=== PATIENT | male | born 1960 | race Caucasian/White ===

== ENCOUNTER 2022-10-06 09:15 | Outpatient (RCR) | payer MEDICAID, SELFPAY | END 2023-01-04 16:41 | disposition home or self-care (01) | PROVIDERS: PCP Family Medicine; Visit Provider Family Medicine | DX: M54.9 Dorsalgia, unspecified (principal); Z51.89 Encounter for other specified aftercare | CPT/HCPCS: 97110; 97140; 97162 ==

== ENCOUNTER 2022-12-21 08:58 | Day surgery (SDC) | payer MEDICAID, SELFPAY ==
[2022-12-21] VITALS (22 sets, daily range): BP systolic 102–147; BP diastolic 56–86; PULSE 62–87; RESP 16–20; TEMP 35.9–37.2; O2SAT 90–99; BMI 43.8
[2022-12-21] MEDS: CELECOXIB 200 MG CAPSULE PO (09:49)
[2022-12-21] MEDS: OXYCODONE (CR) 10 MG TAB.ER.12H PO (09:49)
[2022-12-21] MEDS: ACETAMINOPHEN 500 MG TABLET 1000 MG PO ×3 (09:49→21:38)
[2022-12-21] MEDS: SODIUM CHLORIDE 0.9 % (FLUSH) 10 ML SYRINGE IVF (10:00)
[2022-12-21] MEDS: LACTATED RINGERS 1000 ML 1,000 ML 100 ML IV ×2 (10:00→11:54)
[2022-12-21] MEDS: fentaNYL 100 MCG/2 ML inj IVP (10:15)
[2022-12-21] MEDS: MIDAZOLAM HCL 1 MG/ML inj IVP (10:15)
--- NOTE | 2022-12-21 10:15 | SUR.PREOP ---
TIME?OUT:?1015 PT/RN/MDA?VERIFICATION?OF?SURGICAL?SITE,?PROCEDURE,?AND?CONSENT OBTAINED?PRIOR?TO?INVASIVE?PROCEDURE.
[2022-12-21] MEDS: CEFAZOLIN 2 GM INJ IVP (10:30)
[2022-12-21] MEDS: TRANEXAMIC ACID 100 MG/ML INJ 1000 MG IV (10:50)
--- NOTE | 2022-12-21 11:12 | W.ANESCHARGE ---
Anesthesia Charges Start Date/Time Anesthesia Start Date: 12/21/22 Anesthesia Start Time: 10:24 Stop Date/Time Anesthesia Stop Date: 12/21/22 Anesthesia Stop Time: 13:17
--- NOTE | 2022-12-21 11:13 | W.PM.NB ---
Nerve Block Nerve Block Time Seen by Provider: 10:15 Date Seen: 12/21/22 Type of block requested by surgeon for post-operative analgesia: supraclavicular Side: right Time out performed: Yes Verification of patient name: Yes Verification of date of : Yes Site marking: site marked Name of person performing procedure: Low Continuous monitoring Was continuous monitoring of O2 sat, B/P, monitoring and evaluation advisor, recorded every 15 minutes?: Yes Procedure Checklist: sterile prep, needles and gloves Ultrasound guided. Images saved: Yes Medications given in 5ml increments after negative aspiration: Ropivicaine %: 0.5 mL: 20 Needle gauge: 22 Decadron (mg): 10 Precedex (mcg): 25 Patient tolerated procedure well: Yes Block Charges Block Charge (with Pro Fee): Brachial Plexus Use of Ultrasound Machine for Block: Yes- US Guidance/pain block
--- NOTE | 2022-12-21 12:41 | CRLHL7_ITS ---
For Patients: As a result of the Cures Act, medical imaging exams and procedure reports are released immediately into your electronic medical record. You may view this report before your referring provider. If you have questions, please contact your health care provider. Indication: Postop Technique: Two views right shoulder Findings/Impression: Hardware from a reverse total shoulder arthroplasty is in satisfactory position. Bone alignment is normal. No sign of acute fracture. Postop changes are within normal limits. Dictated by Jai Manning MD @ 12/21/2022 3:06:08 PM (Electronically Signed)
--- NOTE | 2022-12-21 12:43 | PM.ORPRC ---
Procedure Note Date of procedure: 12/21/22 Procedure: PREOPERATIVE DIAGNOSIS: Right shoulder rotator cuff tear arthropathy, humeral head retained hardware POSTOPERATIVE DIAGNOSIS: Right shoulder rotator cuff tear arthropathy, humeral head retained hardware NAME OF OPERATION: Right upper extremity reverse shoulder arthroplasty, hardware removal deep SURGEON: Jed Kennedy MD OLIVE GRADER: Mirtha Hearn PA-C, LEAH Alvarez ANESTHESIA: General endotracheal ESTIMATED BLOOD LOSS: 500 mL COMPLICATIONS: None SPECIMENS: None DRAINS: None PREOPERATIVE ANTIBIOTICS: Ancef 3 grams IMPLANTS: 1. Tornier 29 mm x 35 mm baseplate 2. 36mm standard glenosphere 3. 4B humeral stem 4. Low eccentric +0 humeral tray 5. 36mm +6 polyethylene INDICATIONS: The patient is a 62-year-old with a longstanding history of severe, unrelenting right shoulder pain secondary to rotator cuff tear arthropathy. Despite appropriate nonoperative management, including activity modification, anti-inflammatories, [id number]-[id number] pain medication, physical therapy, and injections they continue to have pain and disability. Operative intervention was offered. The risks, benefits and expected outcomes were discussed in detail. These included but were not limited to: Infection, bleeding, injury to blood vessel or nerve, venous thromboembolism. All questions were answered to their satisfaction. Use of an glass ribbon machine operator assistant was necessary throughout the case for patient positioning and safety, soft tissue retraction, and closure. A modifier 22 should be added to this case. The patient's weight of 135 kg with a BMI of 44 kg/meter squared plus a history of previous open rotator cuff repair made the exposure quite difficult. This doubled the time typically required to complete case. PROCEDURE: General anesthesia was administered. The patient was placed in the lazy beach chair position on the operating room table. The right upper extremity was prepped and draped in the usual sterile fashion. A standard deltopectoral incision was made. Subcutaneous dissection was taken with electrocautery to the deltopectoral interval. The cephalic vein was mobilized, lateral branches were cauterized. The vein was ligated and divided. We bluntly entered the deltopectoral interval. We freed up the deltoid. The upper 1/3 of the insertion of the pectoralis was divided with cautery. The static retractor was placed. There was a marked amount of scar from the previous rotator cuff repair. Therefore, a significant amount of time was taken to mobilize the deltoid off of the rotator cuff. The entirety of the supraspinatus, infraspinatus and teres minor are torn and retracted. The biceps was torn and retracted. A fiberWire suture was placed in the subscapularis. The subscap was subperiosteally elevated off of the lesser tuberosity. The humeral head was delivered into the wound. The intramedullary humeral cutting guide was placed. We made the cut at the anatomic neck, in 30? of retroversion. We encountered the 3 metallic anchors. The anterior one was removed intact. The 2 posterior anchors were left in place as it was felt that removal would result in unnecessary bone loss. Humeral sounds were used to assess the diameter of the canal. The broach was placed and had good rotational stability. The calcar reamer was used and the protective base plate cover was placed. Attention was then turned to the glenoid. Hohmann retractors were placed posteriorly. The labrum and biceps stump were sharply debrided. The origin of the inferior glenohumeral ligaments were subperiosteally released off of the glenoid. The drill guide was placed. The guide pin was placed in 0? of cephalic tilt. The reamer was used to bleeding bone. The central drill was used x2. The tap was used. The standard base plate was placed. This had excellent purchase. Locking screws were placed. The glenosphere was placed, the set screw was tightened. Attention then returned to the humerus. We placed a low eccentric standard base plate and standard poly. We reduced the shoulder and took it through a range of motion. It was found to be stable with appropriate soft tissue tension. Trial humeral components were removed. We placed #2 FiberWire sutures in the lesser tuberosity for subsequent subscap repair. We assembled the humeral component on the back table. We placed it in the center of our subscapularis repair sutures and tapped it down to our humeral cut. This had excellent purchase. The shoulder was reduced and again was found to be stable with appropriate soft tissue tension. We did a 3 min dilute Betadine solution soak. We irrigated the wound with 3 L of normal saline via pulse lavage. We repaired the subscapularis to the lesser tuberosity with our previously placed FiberWire sutures. The deltopectoral interval was loosely reapproximated with an 0 Vicryl in an interrupted [id number] fashion. Subcutaneous tissues were closed with the 2-0 Vicryl and a running 3-0 Monocryl suture. The skin was sealed with glue. A dry dressing and sling were applied. Sponge and needle counts were correct x2. The patient tolerated the procedure well, there were no apparent complications. They were awakened and extubated in the operating room, taken to the postanesthesia care unit in satisfactory condition. PLAN: The patient will be mobilized with physical therapy. The sling will be used for 6 weeks postoperatively. Active range of motion in forward flexion and abduction as tolerates. No external rotation greater than 0? for 6 weeks postoperatively. They will be discharged to home once medically appropriate.
--- NOTE | 2022-12-21 13:18 | W.ANESCHARGE ---
Anesthesia Charges Start Date/Time Anesthesia Start Date: 12/21/22 Anesthesia Start Time: 10:24 Stop Date/Time Anesthesia Stop Date: 12/21/22 Anesthesia Stop Time: 13:17
--- NOTE | 2022-12-21 14:41 | P.IMCN_ITS ---
Date of Consult Patient: Sariah Patient Consult date: 12/21/22 Requesting Physician: Orthopedics Primary Care Provider: Derrell Prieto MD Consult Narrative Reason for consult: Postoperative medical management Narrative: John Alexander is a 62 year old male seen for management of medical problems following right shoulder arthroplasty. Procedure was performed by Dr. Kennedy today. There were no operative complications. Estimated blood loss of 500 mL. Postoperatively patient reports he is doing well. He has an affective block in his shoulder which is effectively controlling his pain. He has minimal sensation and motion in his distal right upper extremity. He has no shortness of breath. He has been mildly hypoxic postoperatively and is on nasal cannula oxygen currently. He has not had any recent shortness of breath or respiratory illness. He is a smoker. Preop evaluation showed no significant are concerns. Review of Systems Narrative: Patient reports no concerns regarding his health at this time. His requesting a nicotine patch. He is confident in his ability to manage after surgery since he has had previous bilateral rotator cuff repairs. He gets up once at night to void [facility] Medical History (Updated 12/21/22 @ 14:53 by Tevin Cintron MD) Osteoarthritis of left shoulder ?M19.012 - Primary osteoarthritis, left shoulder (ICD-10) Unspecified sleep apnea ?G47.30 - Sleep apnea, unspecified (ICD-10) Atopic dermatitis ?L20.9 - Atopic dermatitis, unspecified (ICD-10) Surgical History (Updated 12/21/22 @ 14:52 by Tevin Cintron MD) Status post reverse arthroplasty of right shoulder ?Z96.611 - Presence of right artificial shoulder joint (ICD-10) S/P UPPP (uvulopalatopharyngoplasty) ?Z98.890 - Other specified postprocedural states (ICD-10) Hx of hernia repair ?Z98.890 - Other specified postprocedural states (ICD-10) ?Z87.19 - Personal history of other diseases of the digestive system (ICD-10) Hx of appendectomy ?Z90.49 - Acquired absence of other specified parts of digestive tract (ICD- 10) History of arthroscopy of right shoulder (02/23/00) ?Z98.890 - Other specified postprocedural states (ICD-10) S/P left knee arthroscopy (08/15/07) ?Z98.890 - Other specified postprocedural states (ICD-10) S/P right knee arthroscopy (08/15/07) ?Z98.890 - Other specified postprocedural states (ICD-10) S/P arthroscopy of left shoulder (01/29/08) ?Z98.890 - Other specified postprocedural states (ICD-10) Status post total right knee replacement (01/13/09) ?Z96.651 - Presence of right artificial knee joint (ICD-10) S/P right rotator cuff repair (11/30/10) ?Z98.890 - Other specified postprocedural states (ICD-10) Status post total left knee replacement (06/07/11) ?Z96.652 - Presence of left artificial knee joint (ICD-10) History of carpal tunnel surgery of right wrist (02/21/12) ?Z98.890 - Other specified postprocedural states (ICD-10) Family History (Updated 12/21/22 @ 14:47 by Tevin Cintron MD) Brother Diabetes Father Diabetes Prostate cancer Sister Diabetes Mother Lymphoma Social History (Updated 12/21/22 @ 14:48 by Tevin Cintron MD) Narrative: He lives with his significant other in [place]. He smokes 1 pack of cigarettes per day. He drinks 2 alcoholic beverages per week What is your current living situation?: I presently have a place to live Problems where you live: no known problems In the past 12 months, utilities in danger of being shut off: no In past 12 months, lack of transportation kept you from medical appts, meetings, work, or getting things needed for daily living: no In the past 12 mos, have been you worried that your food would run out before you had money to buy more?: never true In the past 12 mos, the food you bought just didn't last and you didn't have money to buy more?: never true Smoking Status: Current every day smoker What tobacco products do you use: cigarettes Do you use any of these nicotine containing products: Smokeless Tobacco Nicotine containing products detail: nicotine pouch Second hand tobacco smoke exposure: No How often do you have a drink containing alcohol: 2-4 times a month AUDIT-C Alcohol total score: 2 Non-prescribed substance use: denies use Caffeine: Yes How often does anyone, including family, friends and others, physically hurt you : never How often does anyone, including family, friends and others, insult or talk down to you: never How often does anyone, including family, friends and others, threaten you with harm: never Meds Home Medications and Allergies Home Medications Medication Instructions Recorded Confirmed Type psyllium husk 3.4 gram/5.4 gram 1 tbsp PO BID 12/20/22 12/21/22 History oral powder (Metamucil) trazodone 50 mg tablet 200 mg PO QHS PRN 12/20/22 12/21/22 History Allergies Allergy/AdvReac Type Severity Reaction Status Date / Time No Known Drug Allergies Allergy Unverified 10/09/22 14:53 Exam Narrative: Exam Narrative: He is alert and in no distress. Oropharynx with small airway. Neck is supple without mass or adenopathy. Respirations are clear to auscultation. Symmetric breath sounds comparing left to right. He has diminished breath sounds in all lung hoffmann however. No wheezing rales or rhonchi. Cardiovascular: Distant S1, S2, regular rate and rhythm. Abdomen is soft without tenderness or mass. Right upper extremity is in a sling. He has diminished sensation and diminished movement in his fingers. Good capillary refill. Fingers are warm to touch and good radial pulse. Left upper extremities normal. Lower extremities without edema. Intact peripheral pulses. Const: Vital Signs, click to edit/add: Vital Signs - 24 hr 12/21/22 09:45 12/21/22 10:13 12/21/22 10:15 Temperature 97.9 F Pulse Rate 63 64 62 Respiratory Rate 16 16 16 Blood Pressure 133/71 137/78 140/77 H Pulse Oximetry 96 95 97 Oxygen Delivery Me thod Room Air Nasal Cannula Nasal Cannula Oxygen Flow Rate 3 3 12/21/22 13:12 12/21/22 13:15 12/21/22 13:20 Temperature 99.0 F Pulse Rate 81 77 80 Respiratory Rate 18 18 20 Blood Pressure 145/86 H 147/77 H 142/77 H Pulse Oximetry 93 90 91 Oxygen Delivery Me thod Room Air Oxygen Flow Rate 12/21/22 13:25 12/21/22 13:30 12/21/22 13:35 Temperature Pulse Rate 80 76 75 Respiratory Rate 20 18 20 Blood Pressure 142/77 H 126/70 125/67 Pulse Oximetry 92 92 92 Oxygen Delivery Me thod Oxygen Flow Rate 12/21/22 13:40 Temperature 97.9 F Pulse Rate 76 Respiratory Rate 18 Blood Pressure 120/74 Pulse Oximetry 92 Oxygen Delivery Me thod Oxygen Flow Rate Documenting provider has reviewed patient's vital signs: yes Assessment and Plan Assessment and plan (1) Osteoarthritis of left shoulder: Problem comment: End-stage left shoulder glenohumeral joint osteoarthritis Status: Acute (2) Status post reverse arthroplasty of right shoulder: Problem comment: Procedure performed 12/21/[address] Kennedy. No complications. Status: Acute (3) Postoperative hypoxia: Problem comment: Likely combination of factors including sedation and sleep apnea. Continue to monitor and evaluate if persistent Status: Acute (4) Unspecified sleep apnea: Problem comment: Home CPAP Status: Acute Plan Patient will be manage overnight for hypoxia and sleep apnea. Routine therapy and pain management. Anticipate discharge to home tomorrow. Total time spent today is 40 minutes, 25 minutes in coordination of care and discussing with patient, significant other and other staff ongoing evaluation management of hypoxia, sleep apnea, shoulder surgery
[2022-12-21] MEDS: NICOTINE 21 MG PATCH 1 PATCH TRANSDERMA (15:21)
[2022-12-21] MEDS: CEFAZOLIN 3 GM in 0.9 % SODIUM CHLORIDE Mini-bag 100 ML IVPB ×2 (17:24→23:56)
[2022-12-21] MEDS: SENNOSIDES 1 TAB TABLET 2 TAB PO (20:42)
[2022-12-21] MEDS: PSYLLIUM HUSK (WITH SUGAR) 12 GM PACKET PO (20:43)
[2022-12-21] MEDS: OXYCODONE 5 MG TABLET PO (23:51)
[2022-12-22 03:14] VITALS: BP 130/67; PULSE 71; RESP 18; TEMP 36.6; O2SAT 94
[2022-12-22] MEDS: OXYCODONE 5 MG TABLET PO ×2 (03:36→08:24)
[2022-12-22] MEDS: ACETAMINOPHEN 500 MG TABLET 1000 MG PO (03:36)
--- NOTE | 2022-12-22 05:45 | PC.NURSE ---
End of shift [id number]: A&O, pleasant and cooperative. VSS. Uses CPAP at night. Reporting 6-8/10 back pain. See eMAR for intervention. CMS intact and +radial pulse. Dressing to right shoulder c/d/i. Cryocuff to site and sling on. Nicotine patch to left outer shoulder. SBA to bathroom. Denies n/v. Tolerating regular diet. ?
[2022-12-22 06:38] LABS: Potassium* 3.9 mmol/L (3.6-5.1); Sodium* 136 mmol/L (135-149)
[2022-12-22 06:41] LABS: Blood Urea Nitrogen* 15 mg/dL (7-30); Creatinine* 0.7 mg/dL (0.5-1.5); Est. Creatinine Clearance* 75.61; Estimated Glomerular Filt Rate 104 ml/min; Hematocrit 39.9 % (37.0-53.0); Hemoglobin* 13.8 gm/dL (13.5-17.5); Mean Corpuscular HGB Conc 35 gm/dL (32-36); Mean Corpuscular Hemoglobin 31 pg (26-34); Mean Corpuscular Volume 88 fL (80-100); Platelet Count* 245 K/uL (140-440); Red Blood Count 4.52 m/uL (4.30-5.90)
[2022-12-22 06:51] LABS: Slide Review Reflex No
[2022-12-22 07:00] VITALS: BP 130/66; PULSE 82; RESP 18; TEMP 36.5; O2SAT 97
[2022-12-22] MEDS: SENNOSIDES 1 TAB TABLET 2 TAB PO (08:24)
[2022-12-22] MEDS: PSYLLIUM HUSK (WITH SUGAR) 12 GM PACKET PO (08:25)
--- NOTE | 2022-12-22 09:32 | REH.PT ---
Pt seen by PT. Pt is IND with all mobility, no AD needed. Pt re-educated on sling use and post-op precautions.
--- NOTE | 2022-12-22 10:02 | PC.SOCIAL ---
Discharge Planning: Patient will be going home today withRenata. She will be able to help care for him as he recuperates. Social work to follow up as needed.
--- NOTE | 2022-12-22 10:03 | PM.ORPN ---
Subjective Subjective Time Seen by Provider: 07:35 Date Seen: 12/22/22 Principal diagnosis: Status post right reverse total shoulder arthroplasty Interval history: Corby is comfortable this morning. He is able to move his fingers. He has no pain at the shoulder. He is discharging today to home. Ortho Exam Narrative Exam Narrative: Alert and oriented x3. Patient is in no acute distress. Converses without labored breathing. Hearing is grossly intact. Ambulates with a normal gait. Examination of the right shoulder shows the dressing is intact. Soft tissue edema is present. He is able to move his fingers. Sensation in his fingers is normal, however mild thumb numbness. Sling is applied to right upper extremity. Pulses 2+ radial and ulnar. Const Vital Signs, click to edit/add: Vital Signs - 24 hr 12/21/22 10:13 12/21/22 10:15 12/21/22 13:12 Temperature 99.0 F Pulse Rate 64 62 81 Pulse Rate [Right Pulse Oximeter] Respiratory Rate 16 16 18 Blood Pressure 137/78 140/77 H 145/86 H Blood Pressure [Left Arm] Pulse Oximetry 95 97 93 Oxygen Delivery Method Nasal Cannula Nasal Cannula Room Air Oxygen Flow Rate 3 3 12/21/22 13:15 12/21/22 13:20 12/21/22 13:25 Temperature Pulse Rate 77 80 80 Pulse Rate [Right Pulse Oximeter] Respiratory Rate 18 20 20 Blood Pressure 147/77 H 142/77 H 142/77 H Blood Pressure [Left Arm] Pulse Oximetry 90 91 92 Oxygen Delivery Method Oxygen Flow Rate 12/21/22 13:30 12/21/22 13:35 12/21/22 13:40 Temperature 97.9 F Pulse Rate 76 75 76 Pulse Rate [Right Pulse Oximeter] Respiratory Rate 18 20 18 Blood Pressure 126/70 125/67 120/74 Blood Pressure [Left Arm] Pulse Oximetry 92 92 92 Oxygen Delivery Method Oxygen Flow Rate 12/21/22 13:50 12/21/22 14:00 12/21/22 14:15 Temperature 96.6 F L 96.6 F L 96.7 F L Pulse Rate 70 Pulse Rate [Right Pulse Oximeter] 69 65 Respiratory Rate 18 18 18 Blood Pressure Blood Pressure [Left Arm] 115/65 104/79 120/61 Pulse Oximetry 92 94 Oxygen Delivery Method Room Air Room Air Room Air Oxygen Flow Rate 2 12/21/22 14:30 12/21/22 14:45 12/21/22 15:00 Temperature 96.6 F L Pulse Rate Pulse Rate [Right Pulse Oximeter] 64 64 Respiratory Rate 18 18 18 Blood Pressure Blood Pressure [Left Arm] 114/64 112/61 Pulse Oximetry 97 99 Oxygen Delivery Method Room Air Room Air Oxygen Flow Rate 2 2 12/21/22 15:15 12/21/22 15:45 12/21/22 17:00 Temperature 97 F L 97 F L 97.1 F L Pulse Rate Pulse Rate [Right Pulse Oximeter] 75 78 77 Respiratory Rate 18 18 18 Blood Pressure Blood Pressure [Left Arm] 102/60 119/61 123/73 Pulse Oximetry 92 93 95 Oxygen Delivery Method Room Air Room Air Room Air Oxygen Flow Rate 3 12/21/22 18:00 12/21/22 19:00 12/21/22 23:41 Temperature 97.6 F 98.0 F Pulse Rate Pulse Rate [Right Pulse Oximeter] 72 87 79 Respiratory Rate 18 18 18 Blood Pressure Blood Pressure [Left Arm] 124/71 134/68 127/56 L Pulse Oximetry 95 94 93 Oxygen Delivery Method Room Air Room Air Room Air Oxygen Flow Rate 12/22/22 03:14 12/22/22 07:00 12/22/22 07:00 Temperature 97.8 F 97.7 F Pulse Rate Pulse Rate [Right Pulse Oximeter] 71 82 82 Respiratory Rate 18 18 18 Blood Pressure Blood Pressure [Left Arm] 130/67 130/66 Pulse Oximetry 94 97 Oxygen Delivery Method Room Air Oxygen Flow Rate Assessment and Plan Assessment and plan (1) Status post reverse arthroplasty of right shoulder: Problem details: Procedure performed 12/21/[address] Kennedy. No complications. Status: Acute Assessment and Plan: Plan for discharge is to home when they meet discharge criteria. Patient will wear the sling for 6 weeks post surgery. They can take it off for comfort and for exercises. Activity: no external rotation of the operative shoulder past 0? x 6 weeks. Forward flexion and abduction of the shoulder is allowed as tolerated. They will work on range of motion of the elbow, wrist, fingers once the block has wore off on the operative extremity. Patient will begin physical therapy for the operative shoulder next week. For discharge, oxycodone and Tylenol for pain. Do not drive while on narcotic pain medication. Drive only when safe to do so, when they have normal use/function of the upper extremity, this will likely take 6 weeks. Patient will minimize and discontinue the narcotic as soon as possible. Remove dressing in 1 week. Dressing is waterproof. May shower. Surgical glue covers the wound. Do not scrub the wound. Expect swelling and bruising about the shoulder and upper extremity. Use of ice/active ice without restriction. Notify Orthopedics his swelling is excessive. notify Orthopedics with any questions or concerns. [phone] Return to Orthopedic clinic next week for a wound check Return to clinic in [address] Kennedy. (2) Postoperative hypoxia: Problem details: Likely combination of factors including sedation and sleep apnea. Continue to monitor and evaluate if persistent Status: Acute (3) Unspecified sleep apnea: Problem details: Home CPAP Status: Acute
--- NOTE | 2022-12-22 10:24 | PC.NURSE ---
Discharge: Patient is alert and oriented x4, denies pain in right shoulder, pre-medicated w/PRN oxy prior to therapy. denies N/V/SOB. Patient's dressing to right shoulder, C/D/I. Patient using sling, ambulating halls and to BR independently. Discharged today at 1000 accompanied by sig other. IV removed intact, discharge instructions given and signed, patient verbalized understanding of discharge instructions. Belongings list signed.
== END 2022-12-22 10:00 | disposition home or self-care (01) ==
LOC: OR 08:59 → MEDSURG 09:00
PROVIDERS: PCP Family Medicine; Visit Provider Orthopaedic Surgery
PROC: 0RRJ0JZ Replacement of Right Shoulder Joint with Synthetic Substitute, Open Approach (ICD-10-PCS; CPT 23472; principal; 2022-12-21 11:15)
DX: M75.101 Unspecified rotator cuff tear or rupture of right shoulder, not specified as traumatic (principal); M19.012 Primary osteoarthritis, left shoulder; G89.18 Other acute postprocedural pain; G47.30 Sleep apnea, unspecified; R09.02 Hypoxemia; F17.210 Nicotine dependence, cigarettes, uncomplicated
CPT/HCPCS: 23472; 01638; 36415; 64415; 73030; 76942; 82565; 84132; 84295; 84520; 85027; 97110; 97165; 97535; A9270; C1713; C1776; J0330; J0690; J1100; J2250; J2405; J2704; J2795; J3010; J3490; J7120; S4990

== ENCOUNTER 2023-02-13 10:58 | Day surgery (SDC) | payer MEDICAID, SELFPAY ==
[2023-02-13] VITALS (12 sets, daily range): BP systolic 110–140; BP diastolic 58–81; PULSE 66–711; RESP 4–22; TEMP 36.2–36.6; O2SAT 93–99; BMI 43.9
[2023-02-13] MEDS: LACTATED RINGERS 1000 ML 1,000 ML 100 ML IV (11:20)
[2023-02-13] MEDS: SODIUM CHLORIDE 0.9 % (FLUSH) 10 ML SYRINGE IVF (11:20)
--- NOTE | 2023-02-13 12:41 | CRLHL7_ITS ---
For Patients: As a result of the Cures Act, medical imaging exams and procedure reports are released immediately into your electronic medical record. You may view this report before your referring provider. If you have questions, please contact your health care provider. INDICATION: Post reduction two-views FINDINGS: Normal alignment. No acute fractures or acute osseous abnormalities. Right humeral arthroplasty appears in appropriate position. IMPRESSION: No acute fracture. Dictated by Tania Levy MD @ 02/15/2023 12:00:04 PM (Electronically Signed)
[2023-02-13] MEDS: LACTATED RINGERS 1000 ML 1,000 ML 35 ML IV (14:10)
--- NOTE | 2023-02-13 14:10 | W.ANESCHARGE ---
Anesthesia Charges Start Date/Time Anesthesia Start Date: 02/13/23 Anesthesia Start Time: 13:29 Stop Date/Time Anesthesia Stop Date: 02/13/23 Anesthesia Stop Time: 14:02
--- NOTE | 2023-02-13 14:18 | W.ANESCHARGE ---
Anesthesia Charges Start Date/Time Anesthesia Start Date: 02/13/23 Anesthesia Start Time: 13:29 Stop Date/Time Anesthesia Stop Date: 02/13/23 Anesthesia Stop Time: 14:02
--- NOTE | 2023-02-13 14:34 | PM.ORPRC ---
Procedure Note Date of procedure: 02/13/23 Procedure: PREOPERATIVE DIAGNOSIS: Dislocated right upper extremity reverse shoulder arthroplasty POSTOPERATIVE DIAGNOSIS: Dislocated right upper extremity reverse shoulder arthroplasty NAME OF OPERATION: Closed reduction under anesthesia SURGEON: Jed Kennedy MD CORRECTIONAL SUPERVISOR: LEAH Alvarez ANESTHESIA: General endotracheal ESTIMATED BLOOD LOSS: 0 mL COMPLICATIONS: None SPECIMENS: None DRAINS: None PREOPERATIVE ANTIBIOTICS: None INDICATIONS: The patient is a 63-year-old who previously underwent right upper extremity reverse shoulder arthroplasty for rotator cuff tear arthropathy. Over the weekend, he sustained an anterior dislocation. He presented to the office yesterday when we made the diagnosis. Operative intervention was recommended. The risks, benefits and expected outcomes were discussed in detail. These included but were not limited to: Infection, bleeding, injury to blood vessel or nerve, venous thromboembolism. All questions were answered to their satisfaction. Use of an surgical assistant certified was necessary throughout the case for patient positioning and safety, soft tissue retraction, and closure. PROCEDURE: The patient was left on the hospital cart. General anesthesia was administered. Gentle longitudinal traction and posterior force on the humeral component allowed it to reduce easily. I then placed arm in end range of motion in all planes in an attempt to get it to dislocate. The shoulder was stable. I was not able to get it to dislocate in any position. An intraoperative AP and axillary view of the right shoulder show a concentric reduction, without an obvious fracture. The sling was applied. Sponge and needle counts were correct x2. The patient tolerated the procedure well, there were no apparent complications. They were awakened and extubated in the operating room, taken to the postanesthesia care unit in satisfactory condition. PLAN: The patient will be discharged to home. We will have him use the sling for the next 3-4 weeks. He may use the arm for activities of daily living. However, active range of motion in forward flexion and abduction to 90? . No extreme abduction and external rotation or extension and external rotation for 3-4 weeks postoperatively. We will hold physical therapy for the next 3-4 weeks. He will follow up in 1-2 weeks.
== END 2023-02-13 15:26 | disposition home or self-care (01) ==
LOC: OR 10:59 → MEDSURG 11:02
PROVIDERS: PCP Family Medicine; Visit Provider Orthopaedic Surgery
PROC: (CPT 27570; principal; 2023-02-13 14:00)
DX: S43.084A Other dislocation of right shoulder joint, initial encounter (principal); Z96.611 Presence of right artificial shoulder joint
CPT/HCPCS: 23655; 01620; 73030; J0330; J2250; J2704; J3010; J7120

== ENCOUNTER 2023-04-12 14:30 | Outpatient (RCR) | payer MEDICAID, SELFPAY ==
--- NOTE | 2023-01-04 12:16 | PT.OPE ---
PT [facility] Eval PT [facility] Outpatient Eval Start: 01/04/23 07:53 Freq: Status: Active Protocol: Document 01/04/23 12:14 CJT (Rec: 01/04/23 12:16 CJT [id number]) E-signed By Jerome Smith PT Physical Therapy Outpatient Evaluation Insurance Information Recert Due Date 04/04/23 Insurance Name Medicaid,are Medical Diagnosis s/p Right RSA (12/21/22) Treating Diagnosis Z96.611 - R TSA Referring MD Kennedy, Jed VIRAMONTES Subjective Subjective Pt presents 2 weeks post-op R rTSA performed on 12/21/22. Pt notes his pain has been well managed with oxy and tylenol. Is eager to get back to driving and ween himself off of the oxy soon. Has primarily been taking his oxy at night to help him sleep. Pain Comments 06/05 Date of Last Physician Visit 12/27/22 Current Work Status Rn Invasive Occupation Construction Preferred Name Corby Precautions Treatment Precautions/Contraindications The sling will be used for 6 weeks postoperatively. Active range of motion in forward flexion and abduction as tolerates. No external rotation greater than 0? for 6 weeks postoperatively. Postoperative hypoxia (Acute) Likely combination of factors including sedation and sleep apnea. Continue to monitor and evaluate if persistent R09.02 - Hypoxemia (ICD-10) Z98.890 - Other specified postprocedural states (ICD-10) Unspecified sleep apnea (Acute ) Home CPAP G47.30 - Sleep apnea, unspecified (ICD-10) Status post reverse arthroplasty of right shoulder (Acute 12/21/22) Procedure performed 12/21/[address] Kennedy. No complications. Z96.611 - Presence of right artificial shoulder joint (ICD -10) Osteoarthritis of left shoulder (Acute) End-stage left shoulder glenohumeral joint osteoarthritis M19.012 - Primary osteoarthritis, left shoulder (ICD-10) Radiculitis (Acute) M54.10 - Radiculopathy, site unspecified (ICD-10) Right rotator cuff tear arthropathy (Acute) M75.101 - Unspecified rotator cuff tear or rupture of right shoulder, not specified as traumatic (ICD-10) M12.811 - Other specific arthropathies, not elsewhere classified, right shoulder ( ICD-10) Left rotator cuff tear arthropathy (Acute) History of left shoulder rotator cuff repair by Dr. Shafer (01/29/2008), recurrent full-thickness supraspinatus tear, moderate muscle belly atrophy M75.102 - Unspecified rotator cuff tear or rupture of left shoulder, not specified as traumatic (ICD-10) M12.812 - Other specific arthropathies, not elsewhere classified, left shoulder (ICD -10) Soft tissue injury of left forearm (Acute) S59.912A - Unspecified injury of left forearm, initial encounter (ICD-10) Rash (Acute) R21 - Rash and other nonspecific skin eruption (ICD -10) Knee fracture, left (Acute 22/01) Full thickness rotator cuff tear (Acute 11/22/10) M75.120 - Complete rotator cuff tear or rupture of unspecified shoulder, not specified as traumatic (ICD-10 ) Dermatitis (Acute) L30.9 - Dermatitis, unspecified (ICD-10) Closed fracture of tibial plateau (Acute 12/02/10) S82.143A - Displaced bicondylar fracture of unspecified tibia, initial encounter for closed fracture (ICD-10) Cellulitis of right upper extremity (Acute) L03.113 - Cellulitis of right upper limb (ICD-10) Cellulitis of left upper extremity (Acute) L03.114 - Cellulitis of left upper limb (ICD-10) Atopic dermatitis (Acute) L20.9 - Atopic dermatitis, unspecified (ICD-10) Therapy Limitations/Systems Review Not Limited Objective Other/Pertinent Objective R Shoulder ROM Flexion/Abduction/IR/ER - 130/ 100/45/0 Did not test strength this date. Pts shoulder presents with swelling, very little bruising at this time. Incision is dry , appears to be healing well and absent of redness, drainage. Incision is non- tender to palpation. Functional Test Performed & Score QuickDASH: 68% disability Assessment Assessment/Impression Corby is a very pleasant 62 year old male who presents to our clinic for evaluation and treatment following a R rTSA performed on 12/21/22. His pain is well managed and he is progressing well since surgery. Pts shoulder elevation measures as high as 130 degrees this date which is excellent. Pt was educated on expected outcomes and rehabilitation guidelines including frequency and duration of therapy. Pt is eager to return to work as soon as possible. 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 The nature of the pts condition was explained and all questions were answered to the pts satisfaction. Skilled PT services are medically necessary to address deficits and return patient to highest level of function. Recommend physical therapy sessions 1-2/ week for 4-12 weeks. Pt agrees with this plan. Printout of HEP was given for I completion and pt gives verbal understanding of each exercise . Primary Functional Limitations Lifting, reaching, carrying, bearing weight through R UE Plan of Care Rehabilitation Potential Excellent Physical Therapy Goals STG - To be completed in 2-3 weeks: 1. Pt will report consistent use of shoulder sling to allow for appropriate healing of tissues of R shoulder. 2. Pt will demo 130 degrees of R shoulder AROM in sitting or standing so that he may reach for cans of soup on top shelf of pantry. LTG - To be completed in 8-12 weeks: 1. Pt to be I with HEP so that he may I manage progression of symptoms. 2. Pt will demo 5/5 MMT for all shoulder motions in order to perform job duties including lifting a carrying 2x4's and other equipment. 3. 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 4. Pt will demo ability to lift 35# kettlebell to chest height with good body mechanics as indication of ability to lift objects of this weight with proper mechanics while at his job sites. Treatment Plan/Direct Interventions Manual Therapy,Self-Care/Home Management,Therapeutic Activities,Therapeutic Exercises Frequency/Duration 2 reducing to every other week for 8-12 weeks Patient Will Be Discharged From Therapy Completion of LTG(s),Skills Plateau,Independent w/HEP, Independently Progressing Evaluation Billing Untimed Code Treatment Minutes 25 PT Eval No Charge No Complexity Low Certification Information Initial Certification Date 01/04/23 Ending Certification Date 04/04/23 Provider Signature Shows Agreement With POC & Medical Necessity Physician Signature & Date Requested Please Sign/Date Here Physician Comment/Change : Physician NPI Number #
--- NOTE | 2023-01-29 09:58 | PT.OPDN ---
PT [place] Outpatient Daily Note PT [facility] Outpatient Daily Note Start: 01/04/23 07:53 Freq: Status: Active Protocol: Document 01/29/23 08:47 CJT (Rec: 01/29/23 09:58 CJT [id number]) E-signed By Jerome Smith, PT PT OP Daily Progress Note Visit Information Note Type Recert/Progress Note Visit Number 8 Insurance Authorized Visits 99 Physician Authorized Visits eval and treat Insurance Information Recert Due Date 04/04/23 Insurance Name Medicaid,are Medical Diagnosis s/p Right RSA (12/21/22) Treating Diagnosis Z96.611 - R TSA Referring MD Kennedy, Jed VIRAMONTES Subjective Subjective Pt doing well and shoulder is feeling good. Presents without sling today. Precautions Treatment Precautions/Contraindications The sling will be used for 6 weeks postoperatively. Active range of motion in forward flexion and abduction as tolerates. No external rotation greater than 0? for 6 weeks postoperatively. Postoperative hypoxia (Acute) Likely combination of factors including sedation and sleep apnea. Continue to monitor and evaluate if persistent R09.02 - Hypoxemia (ICD-10) Z98.890 - Other specified postprocedural states (ICD-10) Unspecified sleep apnea (Acute ) Home CPAP G47.30 - Sleep apnea, unspecified (ICD-10) Status post reverse arthroplasty of right shoulder (Acute 12/21/22) Procedure performed 12/21/[address] Kennedy. No complications. Z96.611 - Presence of right artificial shoulder joint (ICD -10) Osteoarthritis of left shoulder (Acute) End-stage left shoulder glenohumeral joint osteoarthritis M19.012 - Primary osteoarthritis, left shoulder (ICD-10) Radiculitis (Acute) M54.10 - Radiculopathy, site unspecified (ICD-10) Right rotator cuff tear arthropathy (Acute) M75.101 - Unspecified rotator cuff tear or rupture of right shoulder, not specified as traumatic (ICD-10) M12.811 - Other specific arthropathies, not elsewhere classified, right shoulder ( ICD-10) Left rotator cuff tear arthropathy (Acute) History of left shoulder rotator cuff repair by Dr. Shafer (01/29/2008), recurrent full-thickness supraspinatus tear, moderate muscle belly atrophy M75.102 - Unspecified rotator cuff tear or rupture of left shoulder, not specified as traumatic (ICD-10) M12.812 - Other specific arthropathies, not elsewhere classified, left shoulder (ICD -10) Soft tissue injury of left forearm (Acute) S59.912A - Unspecified injury of left forearm, initial encounter (ICD-10) Rash (Acute) R21 - Rash and other nonspecific skin eruption (ICD -10) Knee fracture, left (Acute 22/01) Full thickness rotator cuff tear (Acute 11/22/10) M75.120 - Complete rotator cuff tear or rupture of unspecified shoulder, not specified as traumatic (ICD-10 ) Dermatitis (Acute) L30.9 - Dermatitis, unspecified (ICD-10) Closed fracture of tibial plateau (Acute 12/02/10) S82.143A - Displaced bicondylar fracture of unspecified tibia, initial encounter for closed fracture (ICD-10) Cellulitis of right upper extremity (Acute) L03.113 - Cellulitis of right upper limb (ICD-10) Cellulitis of left upper extremity (Acute) L03.114 - Cellulitis of left upper limb (ICD-10) Atopic dermatitis (Acute) L20.9 - Atopic dermatitis, unspecified (ICD-10) Home Exercise Home Exercise Comments [id number] Objective Other/Pertinent Objective R shoulder AROM: Flexion: 133 Abduction: 116 ER: 10 IR: 40 Functional Test Performed & Score QuickDASH: 68% disability Patient Instructed in Risks/Benefits Yes Therapeutic Exercise Therapeutic Exercise Minutes (minutes) 45 Therapeutic Exercise: To Restore UBE x 6 minutes Functional Status Shoulder isometrics: flexion, extension, adduction, abduction, IR, and ER x 12 ea, 5 hold Rows with BTB 2 x 15 Shoulder IR/ER with RTB 2 x 15 ea Shoulder flexion, 1# x 10, 2# 2 x 10 Shoulder abduction, 1# x 10, 2 # 2 x [address] ER door way stretch 3 x 30 Standing DB bicep curl 2 x 10 Standing CC tricep extension, 7.5# 2 x 10, 15; 10# x 10 Treatment Minutes Timed Code Treatment Minutes 45 Total Treatment Time 45 Billing Units Therapeutic Exercise Units 3 Assessment/Impression Assessment/Impression Corby is now 6 weeks post-op and has been progressing as expected during his time in therapy. Shoulder ROM is appropriate for this stage of his rehab and we have begun some gentle shoulder ER stretching in doorway now that he is 6 weeks post-op. Corby has been faithful with his HEP and we have discussed reducing therapy frequency following this week. Recommend continued PT services to address deficits and return pt to highest level of function. Plan of Care Physical Therapy Goals STG - To be completed in 2-3 weeks: 1. Pt will report consistent use of shoulder sling to allow for appropriate healing of tissues of R shoulder. MET 2. Pt will demo 130 degrees of R shoulder AROM in sitting or standing so that he may reach for cans of soup on top shelf of pantry. MET LTG - To be completed in 8-12 weeks: 1. Pt to be I with HEP so that he may I manage progression of symptoms. 2. Pt will demo 5/5 MMT for all shoulder motions in order to perform job duties including lifting a carrying 2x4's and other equipment. 3. 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 4. Pt will demo ability to lift 35# kettlebell to chest height with good body mechanics as indication of ability to lift objects of this weight with proper mechanics while at his job sites. Daily Plan of Care Continue per POC
== END 2023-05-28 09:38 | disposition home or self-care (01) ==
PROVIDERS: PCP Family Medicine; Visit Provider Orthopaedic Surgery
DX: M19.011 Primary osteoarthritis, right shoulder (principal); Z96.611 Presence of right artificial shoulder joint; M75.101 Unspecified rotator cuff tear or rupture of right shoulder, not specified as traumatic; Z51.89 Encounter for other specified aftercare
CPT/HCPCS: 97110; 97140; 97161; 97165

== ENCOUNTER 2024-06-20 08:29 | Outpatient (CLI) | payer MEDICARE, SELFPAY ==
--- NOTE | 2024-06-20 09:15 | CRLHL7_ITS ---
For Patients: As a result of the Cures Act, medical imaging exams and procedure reports are released immediately into your electronic medical record. You may view this report before your referring provider. If you have questions, please contact your health care provider. Indication: subluxation of right shoulder joint Technique: Realtime grayscale ultrasound of the right anterior shoulder soft tissues performed with various active and passive maneuvers. Comparison: 06/16/2024 x-rays Findings: Postop changes of total reverse shoulder arthroplasty. Subscapularis tendon intact. Scar tissue appears to be present deep to the subscapularis. No soft tissue mass or adenopathy. No retracted tendon. Impression: Intact subscapularis tendon. Probable scar tissue. Dictated by Jai Manning MD @ 06/20/2024 10:47:53 AM (Electronically Signed)
== END 2024-06-20 08:30 | disposition home or self-care (01) ==
PROVIDERS: PCP Family Medicine; Visit Provider Orthopaedic Surgery
DX: M25.511 Pain in right shoulder (principal); S43.001A Unspecified subluxation of right shoulder joint, initial encounter; Z87.828 Personal history of other (healed) physical injury and trauma; Z96.611 Presence of right artificial shoulder joint
CPT/HCPCS: 76882

== ENCOUNTER 2024-07-03 07:27 | Outpatient (CLI) | payer MEDICARE, SELFPAY ==
--- NOTE | 2024-07-03 07:45 | CRLHL7_ITS ---
For Patients: As a result of the Century Cures Act, medical imaging exams and procedure reports are released immediately into your electronic medical record. You may view this report before your referring provider. If you have questions, please contact your health care provider. Indication: Spondylosis without myelopathy or radiculopathy. Neck and arm pain. Technique: Noncontrast sagittal T1, T2, STIR and axial T2 SE and GRE sequences are provided. Comparison: Cervical radiographs 06/23/2024 Findings: Normal cervical lordotic curvature. Grade 1 anterolisthesis at C3-4. Vertebral body heights are maintained. No fractures. No prevertebral or paraspinal edema. Anterior osteophytic spurring at C4-5 and C5-6. The craniocervical junction is unremarkable. No abnormal spinal cord signal. C1-2: No spinal canal stenosis. C2-3: Moderate left facet joint arthropathy. No significant spinal canal stenosis or neural foraminal narrowing. C3-4: Uncovertebral joint hypertrophy. Advanced left facet arthropathy and hypertrophy and mild right facet joint arthropathy. Severe left and moderate right neural foraminal narrowing. C4-5: Uncovertebral joint hypertrophy and facet joint arthropathy bilaterally. Moderate neural foramen narrowing bilaterally. Minimal disc bulge. No significant spinal canal stenosis. C5-6: Posterior disc osteophyte complex and ligamentum flavum buckling results in mild spinal canal stenosis. Uncovertebral joint hypertrophy and facet joint arthropathy results in severe bilateral neural foramen narrowing. C6-7: No significant spinal canal stenosis. Uncovertebral joint hypertrophy results in moderate left and mild right neural foraminal narrowing. C7-T1: Small central protrusion. Mild facet arthropathy. Mild neural foramen narrowing bilaterally. No spinal canal stenosis. Impression : 1. No acute osseous or ligamentous abnormality. Degenerative grade 1 anterolisthesis at C3-4. 2. At C3-4 there is severe left and moderate right neural foraminal stenosis. 3. At C4-5 there is moderate bilateral neural foramen stenosis. 4. At C5-6, posterior disc osteophyte complex and ligamentum flavum buckling results in mild spinal canal stenosis. Severe bilateral neural foramen stenosis. 5. No abnormal spinal cord signal. Dictated by Jai Helm MD @ 07/03/2024 10:26:52 AM (Electronically Signed)
== END 2024-07-03 07:28 | disposition home or self-care (01) ==
LOC: MRI 07:28
PROVIDERS: PCP Family Medicine; Visit Provider Family Medicine
DX: M47.896 Other spondylosis, lumbar region (principal); M48.02 Spinal stenosis, cervical region; M25.78 Osteophyte, vertebrae; M79.603 Pain in arm, unspecified
CPT/HCPCS: 72141